=== PATIENT | female | born 1980 | race Caucasian/White ===

== ENCOUNTER 2020-12-30 19:01 | Emergency (ER) | payer OTHER ==
[~2020-12-30 19:01] MED LIST: IMODIUM CAP 2 MG2 MG PO; ONDANSETRON ODT4 MG PO
[2020-12-30] MEDS ORDERED: IBUPROFEN800 MG PO (21:03)
== END 2020-12-30 21:15 | disposition home or self-care (01) ==
LOC: ER1 19:01
DX: S53.402A Unspecified sprain of left elbow, initial encounter (principal); F17.200 Nicotine dependence, unspecified, uncomplicated; W22.8XXA Striking against or struck by other objects, initial encounter
CPT/HCPCS: 73080; 99283

== ENCOUNTER → 2021-06-25 | Outpatient (CLI) | payer OTHER ==
[~2021-06-25] MED LIST changes: +IBUPROFEN800 MG PO
== END ==
LOC: KOH-I 06-14 10:30
DX: R74.01 Elevation of levels of liver transaminase levels (principal); K76.0 Fatty (change of) liver, not elsewhere classified
CPT/HCPCS: 76705

== ENCOUNTER 2021-07-09 16:55 | Emergency (ER) | payer OTHER ==
[2021-07-09 19:12] LABS: HEMOGLOBIN 11.2 gm/dl (12.3-15.3); RED BLOOD COUNT 3.03 M/UL (4.00-5.10); WHITE BLOOD COUNT 5.9 K/UL (4.5-11.0)
== END 2021-07-10 00:35 | disposition home or self-care (01) ==
LOC: ER1 16:55
PROVIDERS: Emergency Medicine
DX: R60.0 Localized edema (principal); Z20.822 Contact with and (suspected) exposure to COVID-19; I10 Essential (primary) hypertension
CPT/HCPCS: 0240U; 71045; 80053; 81001; 82550; 82553; 83605; 83735; 83880; 84100; 84484; 84703; 85025; 85379; 85610; 85730; 86140; 87040; 87086; 93005; 99284; Q9967

== ENCOUNTER → 2021-07-11 | Outpatient (CLI) | payer OTHER ==
[~2021-07-11] MED LIST changes: +IBU800 MG PO; +LISINOPRIL-HCT1 EAC1 PO
== END ==
LOC: US 09:51
DX: R22.43 Localized swelling, mass and lump, lower limb, bilateral (principal)
CPT/HCPCS: 93970

== ENCOUNTER 2021-07-16 13:47 | Inpatient (IN) | payer OTHER ==
[~2021-07-16] VITALS: Ht 162.6 cm; Wt 99.3 kg
[~2021-07-16 13:47] MED LIST changes: -IBU800 MG PO; -LISINOPRIL-HCT1 EAC1 PO
[2021-07-16 14:38] LABS: RED BLOOD COUNT 3.76 M/UL (4.00-5.10); WHITE BLOOD COUNT 11.4 K/UL (4.5-11.0)
[2021-07-16 14:39] LABS: HEMOGLOBIN 14.1 gm/dl (12.3-15.3)
[2021-07-16 15:10] LABS: BUN/CREATININE RATIO 10 (0-10)
[2021-07-16] MEDS ORDERED: LISINOPRIL-HCT1 EAC1 PO (16:52)
[2021-07-16] MEDS ORDERED: IBU800 MG PO (16:52)
[2021-07-17 05:44] LABS: BUN/CREATININE RATIO 13 (0-10)
[2021-07-17 06:57] LABS: RED BLOOD COUNT 2.88 M/UL (4.00-5.10); WHITE BLOOD COUNT 8.8 K/UL (4.5-11.0)
[2021-07-17 06:58] LABS: HEMOGLOBIN 10.7 gm/dl (12.3-15.3)
[2021-07-17] MEDS ORDERED: VITAMIN B-1100 M1 PO (15:45)
[2021-07-17] MEDS ORDERED: EPINEPHRIN0.3 MG/0.3 INJ (15:45)
[2021-07-17] MEDS ORDERED: TAB-A-VITE TA400 MC1 PO (15:45)
[2021-07-17] MEDS ORDERED: MEDROL4 MG PO (15:45)
== END 2021-07-17 16:32 | disposition home or self-care (01) | DRG 915 ==
LOC: ER1 13:47 → CCU 16:35 → CDU 16:35 → CCU 19:40
PROVIDERS: Emergency Medicine; Physician Assistant Medical; ADMIT Internal Medicine
PROC: 30233L1 Transfusion of Nonautologous Fresh Plasma into Peripheral Vein, Percutaneous Approach (ICD-10-PCS; principal; 2021-07-16)
DX: T78.3XXA Angioneurotic edema, initial encounter (principal); J96.01 Acute respiratory failure with hypoxia; Z20.822 Contact with and (suspected) exposure to COVID-19; E66.9 Obesity, unspecified; D75.89 Other specified diseases of blood and blood-forming organs; F10.20 Alcohol dependence, uncomplicated; K70.30 Alcoholic cirrhosis of liver without ascites; F17.210 Nicotine dependence, cigarettes, uncomplicated; I10 Essential (primary) hypertension; R73.9 Hyperglycemia, unspecified; T38.0X5A Adverse effect of glucocorticoids and synthetic analogues, initial encounter; T46.4X5A Adverse effect of angiotensin-converting-enzyme inhibitors, initial encounter; Z68.37 Body mass index [BMI] 37.0-37.9, adult; Z90.49 Acquired absence of other specified parts of digestive tract; Z82.49 Family history of ischemic heart disease and other diseases of the circulatory system; Z83.3 Family history of diabetes mellitus; Z80.9 Family history of malignant neoplasm, unspecified
CPT/HCPCS: 36415; 71045; 80048; 80053; 82550; 82553; 82607; 82746; 83036; 83735; 83921; 84439; 84443; 84484; 85025; 85027; 86900; 86901; 86927; 93005; 94640; 94664; 94760; 96372; 96374; 96375; 96376; 99285; J0171; J1650; J2405; J2930; J7030; P9017; U0002

== ENCOUNTER 2021-10-02 05:03 | Emergency (ER) | payer OTHER ==
[~2021-10-02 05:03] MED LIST changes: +EPINEPHRIN0.3 MG/0.3 INJ; +IBU800 MG PO; +LISINOPRIL-HCT1 EAC1 PO; +MEDROL4 MG PO; +TAB-A-VITE TA400 MC1 PO; +VITAMIN B-1100 M1 PO
[2021-10-02 06:29] LABS: HEMOGLOBIN 13.1 gm/dl (12.3-15.3); RED BLOOD COUNT 3.68 M/UL (4.00-5.10); WHITE BLOOD COUNT 4.4 K/UL (4.5-11.0)
[2021-10-02 06:53] LABS: BUN/CREATININE RATIO 17 (0-10)
[2021-10-02] MEDS ORDERED: ZYRTEC10 MG PO (08:31)
[2021-10-02] MEDS ORDERED: PREDNISONE 10 M10 MG PO (08:31)
== END 2021-10-02 08:38 | disposition home or self-care (01) ==
LOC: ER1 05:03
PROVIDERS: Family Medicine
DX: J02.9 Acute pharyngitis, unspecified (principal); R06.2 Wheezing; F17.200 Nicotine dependence, unspecified, uncomplicated; E87.6 Hypokalemia; R07.9 Chest pain, unspecified
CPT/HCPCS: 71045; 80048; 82550; 82553; 84484; 85025; 87081; 87880; 93005; 94664; 96374; 99283; J2930